=== PATIENT | male | born 1985 | race African-American/Black ===

== ENCOUNTER 2017-03-07 08:56 | Emergency (ER) | payer OTHER ==
[~2017-03-07] VITALS: Ht 190.5 cm; Wt 99.8 kg
[~2017-03-07 08:56] MED LIST: ERYTHROMYCIN E3.5 G3 OPHTHALMIC; FLEXERIL PO; NAPROSYN500 MG PO; NOHOMEMEDICATIONS
[2017-03-07 08:58] VITALS: BP 124/91
== END 2017-03-07 09:41 | disposition home or self-care (01) ==
LOC: ER 08:56
DX: J06.9 Acute upper respiratory infection, unspecified (principal); Z98.890 Other specified postprocedural states